=== PATIENT | male | born 1990 | race Caucasian/White ===

== ENCOUNTER → 2017-04-16 | Outpatient (CLI) | payer OTHER ==
[2017-04-16 09:43] LABS: BASO % 0.4 %; BASO ABS # 0.02 K/uL (0-0.2); COMPLETE YES; EOS % 1.9 %; HEMATOCRIT 45.8 % (42-52); IG% 0.2 %; LYMPH % 37.8 %; LYMPH ABS # 1.97 K/uL (1.2-3.4); MEAN CELL VOLUME 87.2 fL (80-100); MEAN CORPUSCULAR HEMOGLOBIN 29.1 pg (25-34); MEAN CORPUSCULAR HGB CONC 33.4 g/dl (32-36); MEAN PLATELET VOLUME 9.8 fL (7.4-10.4); MONO % 7.9 %; NEUT % 51.8 %; PLATELET COUNT 182 K/uL (130-400); RED BLOOD COUNT 5.25 M/uL (4.7-6.1); WHITE BLOOD COUNT 5.21 K/uL (4.8-10.8)
[2017-04-16 10:02] LABS: ALT/SGPT 30 U/L (12-78); AST/SGOT 18 U/L (15-37); BLOOD UREA NITROGEN 18 mg/dl (7-18); BUN/CREATININE RATIO 17.8 (10-20); CARBON DIOXIDE 29 mmol/L (21-32); CHLORIDE 106 mmol/L (98-107); GLUCOSE 97 mg/dl (70-99); POTASSIUM 4.1 mmol/L (3.5-5.1); SODIUM 140 mmol/L (136-145)
[2017-04-16 10:05] LABS: ALB/GLOB RATIO 1.3 (0.9-2); ALKALINE PHOSPHATASE 60 U/L (45-117)
== END | disposition home or self-care (01) ==
LOC: C.LAB1850 07:07 → MERGE 07:07
PROVIDERS: ATTEND Nurse Practitioner
DX: R11.0 Nausea (principal)

== ENCOUNTER → 2017-05-01 | Outpatient (CLI) | payer OTHER ==
--- NOTE | 2017-05-01 11:13 | DIAGNOSTIC IMAGING REPORT ---
UPPER GI SERIES AND SMALL BOWEL FOLLOW-THROUGH CLINICAL HISTORY: Stomach ache. COMPARISON STUDY: None. FLUOROSCOPY TIME: 2.8 minutes. FINDINGS: 29 fluoroscopic images were obtained. [employer] demonstrated a normal bowel gas pattern. Esophageal motility was normal. No esophageal mass or stricture was identified. There was no hiatal hernia. No reflux was elicited. Gastric fold pattern was normal. Duodenum was normal. Jejunal and ileal fold patterns were normal. Transit time to the cecum was normal at 40 minutes. Terminal ileum was normal. No mucosal abnormality was identified within the small bowel. There is no small bowel mass. IMPRESSION: Normal upper GI series and small bowel follow-through. Electronically signed by: Adama Simms M.D. 05/01/2017 11:12 AM Dictated Date/Time: 05/01/2017 10:49 AM
== END | disposition home or self-care (01) ==
LOC: C.RAD 09:40
PROVIDERS: ATTEND Internal Medicine
DX: R10.9 Unspecified abdominal pain (principal)